=== PATIENT | female | born 1980 | race Caucasian/White ===

== ENCOUNTER 2018-11-28 21:21 | Emergency (ER) | payer OTHER ==
[~2018-11-28] VITALS: Ht 167.6 cm; Wt 101.6 kg
[2018-11-28] MEDS ORDERED: ADDERALL 20 MG20 M1 PO (21:46)
[2018-11-28 22:36] LABS: ABSOLUTE NEUTROPHILS 9.3 thou/uL (1.4-8.2); BASOPHILS 0.5 % (0.0-2.0); EOSINOPHILS 0.4 % (0.0-3.0); HEMATOCRIT 40.9 % (37.0-47.0); HEMOGLOBIN 13.7 gm/dL (12.0-15.0); LYMPHOCYTES 15.2 % (24.0-44.0); MCH 29.1 pg (26.0-34.0); MCHC 33.5 g/dL (28.0-37.0); MCV 86.6 fL (80.0-100.0); PLATELET COUNT 307 thou/uL (150-400); POLYS 78.9 % (36.0-66.0); RBC 4.72 mil/uL (4.20-5.00); RDW 13.7 % (10.5-14.5); WBC 11.7 thou/uL (4.0-11.0)
[2018-11-28 22:39] LABS: CALCIUM 8.7 mg/dL (8.5-10.1); CREATININE 0.7 mg/dL (0.6-1.0); POTASSIUM 3.8 mmol/L (3.5-5.1)
[2018-11-29 02:40] VITALS: BP 116/92
== END 2018-11-29 02:45 | disposition home or self-care (01) ==
LOC: ER 21:21
PROVIDERS: Student in an Organized Health Care Education/Training Program
DX: K44.9 Diaphragmatic hernia without obstruction or gangrene (principal); K42.9 Umbilical hernia without obstruction or gangrene; K57.90 Diverticulosis of intestine, part unspecified, without perforation or abscess without bleeding; N83.8 Other noninflammatory disorders of ovary, fallopian tube and broad ligament; Z88.0 Allergy status to penicillin; Z88.1 Allergy status to other antibiotic agents